=== PATIENT | male | born 1965 | race Caucasian/White ===

== ENCOUNTER 2017-09-30 01:53 | Emergency (ER) | payer OTHER ==
[~2017-09-30] VITALS: Ht 177.8 cm; Wt 116.7 kg
[~2017-09-30 01:53] MED LIST: ADVAIR 250/501 DISK IH; COMBIVENT INH14.7 GM IH; DELTASONE1 MG PO; LEXAPRO20 MG PO; PREDNISONE20 MG PO; TESSALON200 MG PO; ZITHROMAX Z-PA250 MG PO; ZYRTEC10 M2 PO
[2017-09-30] MEDS ORDERED: ROBITUSSIN AC,T10 ML PO (03:40)
[2017-09-30 04:04] VITALS: BP 136/61
== END 2017-09-30 04:04 | disposition home or self-care (01) ==
LOC: EME 01:53
DX: J20.9 Acute bronchitis, unspecified (principal); J44.0 Chronic obstructive pulmonary disease with (acute) lower respiratory infection; Z87.891 Personal history of nicotine dependence
CPT/HCPCS: 94640; 99281; 99283

== ENCOUNTER 2017-11-15 15:38 | Inpatient (IN) | payer OTHER ==
[~2017-11-15] VITALS: Ht 177.8 cm; Wt 115.8 kg
[~2017-11-15 15:38] MED LIST changes: +ROBITUSSIN AC,T10 ML PO
[2017-11-15 16:18] LABS: HEMATOCRIT 43.5 % (38.0-50.0); MCH 30.1 PG (29.0-34.0); MCHC 34.5 G/DL (30.0-36.0); MCV 87.3 FL (86-99); PLATELET COUNT 163 K/uL (156-360); RBC DIS.WIDTH-CV 12.5 % (11.8-14.6); RBC DIS.WIDTH-SD 39.7 % (39-53); RED BLOOD COUNT 4.98 M/uL (4.00-5.50); WHITE BLOOD COUNT 14.7 K/uL (4.1-10.2)
[2017-11-15 16:29] LABS: CHLORIDE 105 mEq/L (99-109); POTASSIUM 5.1 mEq/L (3.7-5.4); SODIUM 140 mEq/L (136-147)
[2017-11-15 16:31] LABS: GLUCOSE 88 mg/dL (70-99)
[2017-11-15 16:35] LABS: GFR ESTIMATE (CALCULATED) 38 mL/min/ (58.99-99999)
[2017-11-15 16:36] LABS: UREA NITROGEN (BUN) 20 mg/dL (9-23)
[2017-11-15 16:40] LABS: TROP-I INTERPRETATION NEGATIVE; TROPONIN-I 0.21 ng/mL (0.0-0.30)
[2017-11-15 16:55] LABS: TOTAL PROTEIN 8.6 g/dL (6.4-8.3)
[2017-11-15 16:57] LABS: TOTAL BILIRUBIN 0.4 mg/dL (0.0-1.0)
[2017-11-15 16:58] LABS: ALKALINE PHOSPHATASE 81 IU/L (3-129)
[2017-11-15 17:01] LABS: ALT (GPT) 22 IU/L (3-49); AST (GOT) 25 IU/L (2-34); DIRECT BILIRUBIN 0.1 mg/dL (0.0-0.3)
[2017-11-15] MEDS ORDERED: SYMBICORT60 INHALAT IH (19:03)
[2017-11-15] MEDS ORDERED: PROAIR HFA8.5 GM IH (19:04)
[2017-11-15] MEDS ORDERED: BAYER CHEWABLE81 MG PO (19:04)
[2017-11-15] MEDS ORDERED: SINGULAIR10 MG PO (19:04)
[2017-11-15] MEDS ORDERED: BUPROPION HCL150 M2 PO (19:05)
[2017-11-15 19:45] LABS: TROP-I INTERPRETATION INDETERMINATE; TROPONIN-I 0.41 ng/mL (0.0-0.30)
[2017-11-15 21:06] LABS: INTER. NORMALIZED RATIO 1.1
[2017-11-15 21:09] LABS: PTT 27.3 SEC (25-37)
[2017-11-15 21:34] VITALS: BP 131/83
[2017-11-15 22:08] LABS: HDL CHOLESTEROL 38 MG/DL (Desirable>=40); LDL CHOLESTEROL 161 mg/dL (Desirable<100); NON-HDL CHOLESTEROL 209 mg/dL (Desirable<160); TOTAL CHOLESTEROL 247 mg/dL (Desirable<200); TRIGLYCERIDES 241 MG/DL (Normal: <150)
[2017-11-15 23:18] LABS: BASOPHIL (%) 0.5 % (0-1); BASOPHIL COUNT 0.1 K/uL (0-0.1); EOSINOPHIL (%) 0.7 % (0-5); EOSINOPHIL COUNT 0.1 K/uL (0-0.3); HEMATOCRIT 39.2 % (38.0-50.0); HEMOGLOBIN 13.5 G/DL (12.5-16.6); IMMATURE GRANULOCYTE (%) 0.3 % (0.0-0.7); LYMPHOCYTE (%) 39.4 % (15-42); LYMPHOCYTE COUNT 3.8 K/uL (1.0-2.8); MCHC 34.4 G/DL (30.0-36.0); MCV 87.1 FL (86-99); MONOCYTE (%) 8.3 % (3-12); MONOCYTE COUNT 0.8 K/uL (0-0.8); NEUTROPHIL (%) 50.8 % (45-76); NEUTROPHIL COUNT 4.9 K/uL (1.8-6.4); PLATELET COUNT 141 K/uL (156-360); RBC DIS.WIDTH-CV 12.9 % (11.8-14.6); RBC DIS.WIDTH-SD 40.7 % (39-53); WHITE BLOOD COUNT 9.7 K/uL (4.1-10.2)
[2017-11-15 23:39] LABS: ALBUMIN 4.3 g/dL (3.2-4.8); CHLORIDE 106 mEq/L (99-109); SODIUM 139 mEq/L (136-147)
[2017-11-15 23:41] LABS: GLUCOSE 109 mg/dL (70-99)
[2017-11-15 23:45] LABS: ALKALINE PHOSPHATASE 64 IU/L (3-129); GFR ESTIMATE (CALCULATED) 57 mL/min/ (58.99-99999); TOTAL BILIRUBIN 0.5 mg/dL (0.0-1.0); TOTAL PROTEIN 7.2 g/dL (6.4-8.3)
[2017-11-15 23:46] LABS: UREA NITROGEN (BUN) 19 mg/dL (9-23)
[2017-11-15 23:47] LABS: AST (GOT) 24 IU/L (2-34)
[2017-11-15 23:48] LABS: ALT (GPT) 19 IU/L (3-49)
[2017-11-15 23:52] LABS: CREATININE 1.4 mg/dL (0.6-1.3)
[2017-11-16] VITALS (7 sets, daily range): BP systolic 97–126; BP diastolic 54–70
[2017-11-16 03:48] LABS: BASOPHIL (%) 0.6 % (0-1); BASOPHIL COUNT 0.1 K/uL (0-0.1); EOSINOPHIL COUNT 0.1 K/uL (0-0.3); HEMATOCRIT 37.9 % (38.0-50.0); HEMOGLOBIN 12.9 G/DL (12.5-16.6); IMMATURE GRANULOCYTE (%) 0.1 % (0.0-0.7); LYMPHOCYTE (%) 43.1 % (15-42); LYMPHOCYTE COUNT 3.4 K/uL (1.0-2.8); MCH 30.1 PG (29.0-34.0); MCV 88.6 FL (86-99); MONOCYTE (%) 10.3 % (3-12); MONOCYTE COUNT 0.8 K/uL (0-0.8); NEUTROPHIL (%) 44.9 % (45-76); NEUTROPHIL COUNT 3.5 K/uL (1.8-6.4); PLATELET COUNT 130 K/uL (156-360); RED BLOOD COUNT 4.28 M/uL (4.00-5.50); WHITE BLOOD COUNT 7.8 K/uL (4.1-10.2)
[2017-11-16 03:58] LABS: ALBUMIN 3.9 g/dL (3.2-4.8); CHLORIDE 108 mEq/L (99-109); SODIUM 140 mEq/L (136-147)
[2017-11-16 04:00] LABS: GLUCOSE 100 mg/dL (70-99); TOTAL PROTEIN 6.7 g/dL (6.4-8.3)
[2017-11-16 04:02] LABS: TOTAL BILIRUBIN 0.4 mg/dL (0.0-1.0)
[2017-11-16 04:04] LABS: ALKALINE PHOSPHATASE 60 IU/L (3-129); CREATININE 1.3 mg/dL (0.6-1.3); GFR ESTIMATE (CALCULATED) > 59 mL/min/ (58.99-99999)
[2017-11-16 04:05] LABS: UREA NITROGEN (BUN) 21 mg/dL (9-23)
[2017-11-16 04:06] LABS: AST (GOT) 20 IU/L (2-34)
[2017-11-16 04:07] LABS: ALT (GPT) 18 IU/L (3-49)
[2017-11-16 04:15] LABS: TROP-I INTERPRETATION INDETERMINATE; TROPONIN-I 0.45 ng/mL (0.0-0.30)
[2017-11-16 11:08] LABS: TROP-I INTERPRETATION NEGATIVE; TROPONIN-I 0.27 ng/mL (0.0-0.30)
[2017-11-16 12:47] LABS: HEMOGLOBIN A1c (GLYCOHEMOGLOB) 5.5 % (Below 5.7)
[2017-11-17 04:30] VITALS: BP 126/72
[2017-11-17 07:15] VITALS: BP 112/66
[2017-11-17 11:00] VITALS: BP 118/68; BP 126/67
[2017-11-17] MEDS ORDERED: CEFUROXIME500 MG PO (12:38)
== END 2017-11-17 13:08 | disposition home or self-care (01) | DRG 684 ==
LOC: EME 15:38 → EDOF 20:25 → 4EAST 20:25 → ENRESERV 20:32 → 4EAST 21:26
PROVIDERS: Family Medicine; Physician Assistant
DX: N17.9 Acute kidney failure, unspecified (principal); I95.9 Hypotension, unspecified; R94.31 Abnormal electrocardiogram [ECG] [EKG]; D72.829 Elevated white blood cell count, unspecified; J44.9 Chronic obstructive pulmonary disease, unspecified; G47.30 Sleep apnea, unspecified; F32.9 Major depressive disorder, single episode, unspecified; E66.9 Obesity, unspecified; Z68.36 Body mass index [BMI] 36.0-36.9, adult; Z82.49 Family history of ischemic heart disease and other diseases of the circulatory system; Z87.891 Personal history of nicotine dependence
CPT/HCPCS: 71046; 71250; 78582; 80048; 80053; 80061; 80076; 83036; 83605; 84484; 85025; 85027; 85379; 85610; 85730; 87040; 93005; 94640; 94799; 99281; 99285; A9540; A9567; J0696; J7030